=== PATIENT | female | born 1955 | race Caucasian/White ===

== ENCOUNTER → 2021-02-15 | Outpatient (CLI) | payer OTHER ==
[~2021-02-15] MED LIST: APAP500 PO; CINNAMON PLUS1 EACH PO; COUMADIN 2 MG TA2 M1 PO; COUMADIN 5 MG TA5 M1 PO; DRANOCHOL375 MG PO; FISH OIL 1,0001 EAC5 PO; GENTEAL3.5 ML OPHTHALMIC; GLUCOSA-CHOND-1 EACH PO; HYDROCODON-ACE1 EACH PO; MULTIVITAMINS PO; NORCO 10-325 T1 EACH PO; PHILLIPS' LAXA100 MG PO; PRILOSEC 20 MG20 MG PO; PROBIOTIC1 EAC1 PO; RED YEAST RICE600 MG PO; RESTASIS1 EACH OPHTHALMIC; VITAMIN D-32000 UNIT PO; VITAMIN D31000 UNI2 PO
== END ==
LOC: CAT 10:35
PROVIDERS: ATTEND Internal Medicine
DX: Z13.6 Encounter for screening for cardiovascular disorders (principal); I25.10 Atherosclerotic heart disease of native coronary artery without angina pectoris; E78.00 Pure hypercholesterolemia, unspecified

== ENCOUNTER → 2021-11-15 | Outpatient (CLI) | payer OTHER | LOC: SJCVCIMAG 15:46 | PROVIDERS: ATTEND Internal Medicine | DX: I08.1 Rheumatic disorders of both mitral and tricuspid valves (principal) ==